=== PATIENT | female | born 1965 | race Caucasian/White ===

== ENCOUNTER → 2017-07-18 | Outpatient (REF) | payer MEDICARE, MEDICAID ==
[~2017-07-18] MED LIST: FLAG500T; LEVA500T; SIMV20TA2; THERGRAN; VICO5TAB
== END ==
LOC: M SFHCLERA 14:18
PROVIDERS: ATTEND Nurse Practitioner Family
DX: J02.9 Acute pharyngitis, unspecified (principal)

== ENCOUNTER 2018-04-28 06:59 | Day surgery (SDC) | payer MEDICARE, MEDICAID ==
[2018-04-28] MEDS ORDERED: NS 1,000 ML IV (07:15)
[2018-04-28] MEDS ORDERED: PROPOFOL 200 MG/20 ML VIAL As Ordered (08:13)
[2018-04-28] MEDS ORDERED: LIDOCAINE 2% INJ 100 MG/5 ML SDV (FOR ANES.) As Ordered (08:13)
== END 2018-04-28 09:10 | disposition home or self-care (01) ==
LOC: M OPP 06:59
DX: K62.5 Hemorrhage of anus and rectum (principal); K64.8 Other hemorrhoids; Z87.798 Personal history of other (corrected) congenital malformations; Z95.2 Presence of prosthetic heart valve; E78.5 Hyperlipidemia, unspecified; M41.9 Scoliosis, unspecified; G31.84 Mild cognitive impairment of uncertain or unknown etiology; R06.83 Snoring; Z88.2 Allergy status to sulfonamides; Z79.899 Other long term (current) drug therapy
CPT/HCPCS: 45378

== ENCOUNTER 2019-06-07 12:56 | Day surgery (SDC) | payer MEDICARE, MEDICAID ==
[~2019-06-07] VITALS: Ht 154.9 cm; Wt 77.1 kg
[~2019-06-07 12:56] MED LIST changes: +ATOR1TAB21 PO; +LR 1,000 ML IV ONE; +MIRA3350 PO; -SIMV20TA2; +SIMV20TA2 PO; +VITMTA PO; +foot cream TOP
[2019-06-07] MEDS ORDERED: LIDOCAINE 2% INJ 100 MG/5 ML SDV (FOR ANES.) As Ordered ONE (13:47)
[2019-06-07] MEDS ORDERED: ONDANSETRON 4MG/2ML VIAL (J2405) As Ordered ONE (13:47)
[2019-06-07] MEDS ORDERED: PROPOFOL 200 MG/20 ML VIAL As Ordered ONE (13:47)
[2019-06-07] MEDS ORDERED: fentaNYL 100 MCG/2 ML INJECTION (J3010) As Ordered ONE (13:48)
[2019-06-07] MEDS ORDERED: LIDOCAINE VISCOUS 2% SOLN 15ML UDC As Ordered ONE (14:14)
[2019-06-07] MEDS ORDERED: CETACAINE SPRAY 5GM As Ordered ONE (14:14)
--- NOTE | 2019-06-07 15:24 | RO ---
DATE OF PROCEDURE: 06/07/2019 REFERRING PHYSICIAN: Arnaldo Saunders MD PREPROCEDURE DIAGNOSIS: Coaptation of the aorta, status post tetralogy of Fallot repair. POSTPROCEDURE DIAGNOSIS: Coaptation of the aorta, status post tetralogy of Fallot repair. INDICATION: Coaptation of the aorta, status post tetralogy of Fallot repair. PLANNED PROCEDURE: Transesophageal echocardiogram (procedure aborted). PROCEDURE PERFORMED: Failed attempt at esophageal intubation with transesophageal echocardiogram probe. SHEA aborted. FINDINGS: Failed attempt at esophageal intubation with transesophageal echocardiogram probe. SHEA aborted. SURGEON: Artem Vaca MD BLOW PIT OPERATOR: DESCRIPTION OF PROCEDURE: Patient received Cetacaine spray to the back of the pharynx. Following sedation with propofol administered by the [employer], multiple attempts were made at esophageal intubation using the TE probe by Dr. Vaca. The esophageal intubation attempts were unsuccessful after multiple tries. I attribute the difficult anatomy to a relatively short neck with a relatively large tongue and limited ability for forward flexion of the neck. During this esophageal intubation attempt, at one point the oxygen saturation dropped to the mid 80s, but recovered quickly. The patient had a lot of coughing and secretions during the esophageal intubation attempt. CONCLUSIONS: Failed attempt at esophageal intubation with TE probe. SHEA procedure aborted. RECOMMENDATIONS: Consider MRA of the thoracic aorta to better evaluate coaptation of the aorta, status post coaptation of the aorta repair.
[2019-06-07 15:30] VITALS: BP 116/59
== END 2019-06-07 16:00 | disposition home or self-care (01) ==
LOC: M SDC 12:56
PROVIDERS: ATTEND Internal Medicine Cardiovascular Disease
DX: Q25.1 Coarctation of aorta (principal); Q25.0 Patent ductus arteriosus; P35.0 Congenital rubella syndrome; Z53.09 Procedure and treatment not carried out because of other contraindication; I51.7 Cardiomegaly; R94.31 Abnormal electrocardiogram [ECG] [EKG]; Z88.2 Allergy status to sulfonamides; E78.5 Hyperlipidemia, unspecified; Z79.899 Other long term (current) drug therapy; Z68.34 Body mass index [BMI] 34.0-34.9, adult
CPT/HCPCS: 93312; J2405; J3010

== ENCOUNTER → 2019-06-10 | Outpatient (CLI) | payer MEDICARE, MEDICAID ==
[~2019-06-10] MED LIST changes: -LR 1,000 ML IV ONE
== END ==
LOC: M RAD 08:56
PROVIDERS: ATTEND Internal Medicine Cardiovascular Disease
DX: Q25.1 Coarctation of aorta (principal); Z53.9 Procedure and treatment not carried out, unspecified reason

== ENCOUNTER → 2019-06-22 | Outpatient (CLI) | payer MEDICARE, MEDICAID ==
[~2019-06-22] MED LIST changes: +PROHANCE 279.3MG/ML 15ML VIAL (A9576) As Ordered ONE
--- NOTE | 2019-06-23 09:41 | REP ---
MR angiography of the aorta and chest without and with IV contrast: History: Coarctation of the aorta. 30 ml of intravenous ProHance is administered. MRI findings: Comparison chest x-ray January 26, 2018. Technique: Axial and coronal T2 imaging is acquired. Post contrast enhanced MR angiography is acquired and maximal intensity projection images are generated. 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 The left subclavian artery comes off the posterior aortic arch, 2.8 cm distal to the innominate artery. Great vessel origins are not stenotic. The ascending aorta measures 3.0 cm in AP dimension. The transverse aorta measures 1.8 cm in transverse dimension. There is a coarctation of the proximal descending aorta approximately a centimeter from the origin of the left subclavian artery. At the level of the coarct, the aorta measures 0.5 cm in diameter. There is some post stenotic dilation of the proximal thoracic aorta, 2.6 cm. The distal thoracic aorta has a transverse caliber of 2.1 cm. 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 Renal arteries appear to be solitary. Impression: Significant coarctation of the thoracic aorta, adult type, approximately 1 cm distal to the origin of the left subclavian artery. 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 Electronically Signed by Kristofer Ramirez MD 06/23/2019 10:16 A
== END ==
LOC: M RAD 15:20
PROVIDERS: ATTEND Internal Medicine Cardiovascular Disease
DX: Q25.1 Coarctation of aorta (principal)
CPT/HCPCS: A9576; C8909

== ENCOUNTER 2019-07-16 08:29 | Emergency (ER) | payer MEDICARE, MEDICAID ==
[~2019-07-16] VITALS: Ht 154.9 cm; Wt 75.8 kg
[~2019-07-16 08:29] MED LIST changes: -PROHANCE 279.3MG/ML 15ML VIAL (A9576) As Ordered ONE; +SIMV20TA22 PO
[2019-07-16 09:08] LABS: BASO % 0.3 % (0.0-1.0); EOS % 0.3 % (0.0-3.0); HEMATOCRIT 46.6 % (36.0-47.0); HEMOGLOBIN 14.6 g/dl (12.0-15.5); LYMPH # 1.3 10^3/uL (1.5-5.0); LYMPH % 8.9 % (24.0-44.0); MEAN CORPUSCULAR HEMOGLOBIN 29.6 pg (27.0-33.0); MEAN CORPUSCULAR HGB CONC 31.3 g/dl (32.0-36.5); MEAN CORPUSCULAR VOLUME 94.5 fl (80.0-96.0); MONO # 0.9 10^3/uL (0.0-0.8); MONO % 6.3 % (0.0-5.0); NEUTROPHILS # 11.8 10^3/uL (1.5-8.5); NEUTROPHILS % 83.8 % (36.0-66.0); PLATELET COUNT, AUTOMATED 283 10^3/uL (150-450); RED BLOOD COUNT 4.93 10^6/uL (4.00-5.40)
[2019-07-16 09:18] LABS: BILIRUBIN,TOTAL 0.9 MG/DL (0.2-1.0); CALCIUM LEVEL 9.5 MG/DL (8.5-10.1); CREATININE FOR GFR 1.14 MG/DL (0.55-1.30); GLOMERULAR FILTRATION RATE 52.9 (>51); POTASSIUM SERUM 3.6 MEQ/L (3.5-5.1); TOTAL PROTEIN 8.6 GM/DL (6.4-8.2)
[2019-07-16] MEDS ORDERED: NS 500 ML IV ONE (09:45)
[2019-07-16] MEDS ORDERED: CLINDAMYCIN 150 MG CAP PO ONE (10:00)
--- NOTE | 2019-07-16 10:00 | ECGEPIP ---
[facility] - ED Test Date: 2019-07-16 Pat Name: JUSTIN DOMINGUEZ Department: Room: - Gender: Female Civil Project Engineer: gloria : 1965 Requested By: Shoshana Cardenas Order Number: [id number] Reading MD: Shoshana Cardenas Measurements Intervals [place] Rate: 74 P: 48 RI: 153 QRS: 44 QRSD: 76 T: 62 QT: 363 QTc: 403 Interpretive Statements SINUS RHYTHM POSSIBLE LEFT ATRIAL ENLARGEMENT SIMILAR 01/26/18 Electronically Signed on 07-16-2019 10:00:04 EST by Shoshana Cardenas
[2019-07-16] MEDS ORDERED: CLIN150C14 PO (10:03)
[2019-07-16 10:25] VITALS: BP 123/75
== END 2019-07-16 10:31 | disposition home or self-care (01) ==
LOC: M ED 08:29 → EDBD 08:29 → M ED 10:31
DX: K04.7 Periapical abscess without sinus (principal); R55 Syncope and collapse; P35.0 Congenital rubella syndrome; Z77.22 Contact with and (suspected) exposure to environmental tobacco smoke (acute) (chronic); Z79.2 Long term (current) use of antibiotics; Z79.899 Other long term (current) drug therapy; Z88.2 Allergy status to sulfonamides